=== PATIENT | female | born 2000 | race African-American/Black ===

== ENCOUNTER 2022-02-23 14:10 | Emergency (ER) | payer MEDICAID, OTHER ==
[~2022-02-23] VITALS: Ht 175.3 cm; Wt 97.5 kg
--- NOTE | 2022-02-23 14:15 | NUR ---
Patient ambulatory, alert and orientedx4 complaints of lower abdominal pain 5/10 and nausea started yesterday. Denies vomiting, SOB, chest pain. Not in distress.
--- NOTE | 2022-02-23 14:17 | NUR ---
MD at bedside, medical screening exam in progress.
[2022-02-23] MEDS ORDERED: IBUP-1953 PO (14:21)
[2022-02-23] MEDS ORDERED: PROM25TA15 PO (14:21)
[2022-02-23 14:49] LABS: HEMATOCRIT 40.2 % (31.2-41.9); MEAN CORPUSCULAR HEMOGLOBIN 27.9 uug (24.7-32.8); MEAN CORPUSCULAR VOLUME 83.8 fL (75.5-95.3); PLATELET COUNT (AUTO) 233 K/uL (179-408)
[2022-02-23 14:55] LABS: CREATININE 0.8 mg/dL (0.6-1.3)
[2022-02-23 15:07] LABS: BILIRUBIN,DIRECT 0.2 mg/dL (0.0-0.2); BILIRUBIN,TOTAL 0.9 mg/dL (0.2-1.0); TOTAL PROTEIN, SERUM 8.1 g/dL (6.4-8.2)
--- NOTE | 2022-02-23 16:15 | NUR ---
UA sent to lab.
[2022-02-23 16:31] LABS: *BILIRUBIN,URIN NEGATIVE (NEGATIVE); *BLOOD, URINE 3+ (NEGATIVE); *CLARITY,URINE CLEAR (CLEAR); *COLOR,URINE RED (YELLOW); *KETONES,URINE NEGATIVE (NEGATIVE); *UROBILINOGEN,URINE 0.2 E.U./dl (NORMAL); LEUKOCYTE ESTERASE ,URINE NEGATIVE (NEGATIVE); NITRITE, URINE NEGATIVE (NEGATIVE); UGLUCOSE NEGATIVE (NEGATIVE)
[2022-02-23] MEDS ORDERED: MEDR10TA10 PO (16:51)
--- NOTE | 2022-02-23 16:58 | NUR ---
Patient discharged to home in stable condition. Written and verbal after care instructions given. Patient verbalizes understanding of instructions. Stressed follow up or return to ER for worsening s/s.
[2022-02-23 16:59] VITALS: BP 112/80
[2022-02-23 18:48] LABS: BACTERIA,URINE FEW /HPF (NONE SEEN); RBC,URINE 50-80 /HPF (0-3); SQUAMOUS EPITHELIAL CELL,UR FEW /HPF (NONE SEEN); URINE AMORPHOUS URATE FEW /HPF; WBC,URINE 0-3 /HPF (0-3)
== END 2022-02-23 17:05 | disposition home or self-care (01) ==
LOC: ER 14:10
DX: N93.9 Abnormal uterine and vaginal bleeding, unspecified (principal); M79.7 Fibromyalgia
CPT/HCPCS: 36415; 76856; 83690; 85025; A4663